=== PATIENT | female | born 1940 | race Asian ===

== ENCOUNTER → 2016-12-19 | Outpatient (CLI) | payer OTHER ==
[~2016-12-19] MED LIST: BACTRIM DS TAB1 EACH PO; BENADRYL25 MG PO; CALCIUM 600 +1 EAC1 PO; MIRALAX17 GM PO; OMEGA-31000 M1 PO; UNICOMPLEX M TA1 TA1 PO; VESICARE10 M1 PO; VITAMIN B-1100 M1 PO; VITAMIN D400 UNIT PO; ZONISAMIDE 100100 M1 PO
== END ==
LOC: RAD 01:07
DX: Z12.31 Encounter for screening mammogram for malignant neoplasm of breast (principal)

== ENCOUNTER → 2017-12-19 | Outpatient (CLI) | payer OTHER ==
[~2017-12-19] MED LIST changes: +AMITRIPTYLINE H10 M3 PO; +FOLIC ACID1 MG PO; +MAGNESIUM500 MG PO; +NEURONTIN 300300 M1 PO; +VISION FORMULA1 EAC1 PO; +VITAMIN B-12500 MCG PO
== END ==
LOC: RAD 01:19
DX: Z12.31 Encounter for screening mammogram for malignant neoplasm of breast (principal)

== ENCOUNTER 2018-08-22 20:45 | Emergency (ER) | payer OTHER ==
[~2018-08-22] VITALS: Ht 157.5 cm; Wt 68.0 kg
[2018-08-22] MEDS ORDERED: NORCO 5-325 TA1 EACH PO (22:32)
[2018-08-22] MEDS ORDERED: SENNA8.6 MG PO (22:32)
[2018-08-22] MEDS ORDERED: MIRALAX17 GM PO (22:32)
[2018-08-22] MEDS ORDERED: VALIUM5 MG PO (23:32)
[2018-08-22 23:37] VITALS: BP 138/64
== END 2018-08-22 23:42 | disposition home or self-care (01) ==
LOC: ER 20:45
DX: S42.212A Unspecified displaced fracture of surgical neck of left humerus, initial encounter for closed fracture (principal); Z88.0 Allergy status to penicillin; Z88.8 Allergy status to other drugs, medicaments and biological substances; Z88.1 Allergy status to other antibiotic agents; Z88.4 Allergy status to anesthetic agent; Z90.13 Acquired absence of bilateral breasts and nipples; Z90.89 Acquired absence of other organs; W01.0XXA Fall on same level from slipping, tripping and stumbling without subsequent striking against object, initial encounter; Y92.009 Unspecified place in unspecified non-institutional (private) residence as the place of occurrence of the external cause; Y93.89 Activity, other specified; Y99.8 Other external cause status

== ENCOUNTER 2018-09-01 05:29 | Inpatient (IN) | payer OTHER ==
[~2018-09-01] VITALS: Ht 154.9 cm; Wt 68.5 kg
[2018-09-01] VITALS (9 sets, daily range): BP systolic 104–143; BP diastolic 50–70
--- NOTE | ~2018-09-01 | D ---
[facility] [place] [address] DISCHARGE SUMMARY Name: MARISOL VIVEROS Room #: 421-P [facility] IN M.R.#: [id number] Admission: 09/01/18 ������������������ Attend Phys: Rudi Ruiz MD Discharge: ������������������ Date of : 44 Report #: [id number] THIS REPORT FOR: //name// CC: Rudi Fragoso DATE OF SERVICE: 09/02/2018 FINAL DIAGNOSIS: Left proximal humerus fracture. OPERATION AND PROCEDURES: Left proximal humeral hemiarthroplasty. HISTORY: This still very active, fully independent 78-year-old female fell at home injuring the left shoulder. She was found to have a comminuted fracture dislocation. We elected to proceed with hemiarthroplasty. HOSPITAL COURSE: The patient was admitted and taken to the operating room on 09/01/2018. She underwent left shoulder hemiarthroplasty, which she tolerated well. Postoperatively, she is doing quite nicely. She has only mild discomfort which is well controlled with oral medications. She is fully alert. She is back to a regular diet. She is comfortable in her arm sling. She feels safe and independent for discharge home today. DISCHARGE MEDICATIONS: Include calcium carbonate 1 tablet daily, multivitamins 1 tablet daily, thiamine 100 mg daily, vitamin D one tablet daily, vitamin B12 500 mcg one daily, gabapentin 300 mg daily, amitriptyline 10 mg b.i.d., hydrocodone 5 mg one q. 4-6 hours p.r.n. for pain, Crestor 5 mg daily. She will continue gentle moderate activity at home with arm sling protection and very gentle range of motion of the shoulder. I have asked her to call me if there are any problems or questions. I will plan to see her back in my office in 1 week for followup. ��������������������������������������������� ���������������������������������������� By: ��������������������������������������������� 0825 0913 Rudi Ruiz MD /nt
[~2018-09-01 05:29] MED LIST changes: +ALLOPURINOL 10100 M1 PO; +CRESTOR5 MG PO; +ESCITALOPRAM OX10 MG PO; +IRBESARTAN75 MG PO; +NORCO 5-325 TA1 EACH PO; +OMEPRAZOLE40 MG PO; +SENNA8.6 MG PO; +VALIUM5 MG PO; +VASCEPA0.5 GM PO
--- NOTE | 2018-09-01 07:28 | EKG ---
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 : 1940 Requested By: Rudi Ruiz Order Number: [id number] MD: Walter Monreal Measurements Intervals [place] Rate: 84 P: 48 IN: 160 QRS: 41 QRSD: 137 T: 15 QT: 414 QTc: 490 Interpretive Statements Sinus rhythm Atrial premature complex Right bundle branch block No previous ECG available for comparison Electronically Signed On 09-01-2018 7:27:54 CDT by Walter Monreal [email or web address] ��������������������������������������������� <ELECTRONICALLY SIGNED> ���������������������������������������� By: Walter Monreal MD, [facility] ��������������������������������������������� 09/01/18 0727 0616 0616 Walter Monreal MD, FACC /EPI
--- NOTE | 2018-09-01 18:24 | NUR ---
PT RECEIVED FROM OR THIS SHIFT; PT W/REPAIR OF FX TO L HUMERUS; PT IN STABLE CONDITION THIS SHIFT; NO C/O PAIN; ICE IN PLACE TO AFFECTED AREA; PT IS UP TO BATHROOM W/ASSIST X 1; SLING IN PLACE TO AFFECTED AREA; PT IS AXO X 4; DIET ADVANCED TO REG; NO ISSUES/CONCERNS NOTED; FOLLOWING POC
[2018-09-02 04:57] VITALS: BP 110/23
--- NOTE | 2018-09-02 05:08 | NUR ---
PATIENT ALERT AND ORIENTED X4. DRESSING ON L SHOULDER D/I. SLING ON L UPPER EXT. C/O PAIN X1. HAS HOME MEDS IN PHARMACY. SLEPT MOST OF NIGHT.
[2018-09-02 05:33] LABS: HEMATOCRIT 26.2 % (37.0-47.0)
[2018-09-02 05:39] LABS: POTASSIUM 4.5 mmol/L (3.5-5.1)
[2018-09-02 07:21] VITALS: BP 125/89
--- NOTE | 2018-09-02 08:25 | O ---
[facility] [address] OPERATIVE REPORT Name: MARISOL VIVEROS Room #: 421-P [facility] IN .R.#: [id number] Admission: 09/01/18 ������������������ Attend Phys: Rudi Ruiz MD Discharge: ������������������ Date of : 44 Report #: [id number] THIS REPORT FOR: //name// CC: Rudi Fragoso DATE OF SERVICE: 09/01/2018 PREOPERATIVE DIAGNOSIS: Fracture dislocation, left shoulder. POSTOPERATIVE DIAGNOSIS: Fracture dislocation, left shoulder. PROCEDURE: Left proximal humeral shoulder hemiarthroplasty. SURGEON: Rudi Ruiz MD INDICATIONS: This 78-year-old female is still active and fully independent working in her own home and garden. She tripped and fell at home injuring the left shoulder. X-rays confirmed a completely displaced and dislocated 4-part fracture of the proximal humerus. We have discussed treatment options and she has elected to go ahead with surgical reconstruction using a proximal humeral hemiarthroplasty. DESCRIPTION OF PROCEDURE: The patient was taken to the operating room. She was placed under general anesthesia and an interscalene block was applied. The left shoulder and arm were meticulously prepped and draped. Prophylactic intravenous antibiotics were administered. An anterior longitudinal incision was made and the deltopectoral interval was opened, the deltoid was reflected laterally. The fracture was found to be moderately comminuted in a 4-part fashion. The head was removed. The remaining tuberosity fragments were maintained and moderate comminution trimmed back to an appropriate level. The shaft was trimmed back to a more uniform superior margin. The canal was then hand reamed to a 10 mm reamer size. A trial reduction with a 10 mm stem insert was then tried. This was still rather proud and the canal was reamed slightly more aggressively, but still with a 10 mm reamer and the bone at the proximal aspect was trimmed down slightly. This allowed the component to settle in nicely and this seemed to be secure. A trial reduction was performed and a -5 mm body neck length was selected. A 40 mm eccentric humeral head and collar seemed to fit most appropriately. When these trial components were inserted, they were placed at about 10 to 15 degrees of retroversion, which seemed to nicely reproduce shoulder alignment and preserve range of motion with satisfactory stability. The remaining tuberosity fragments and remaining rotator cuff tendon portions were still reasonably intact and could be secured with sutures. The trial component was removed. Two #2 FiberWire sutures were passed through drill holes in the lateral aspect of the humeral shaft. The component was [facility] [address] [place] [address] OPERATIVE REPORT Name: MARISOL VIVEROS Room #: 421-P [facility] IN [facility]#: [id number] Admission: 09/01/18 ������������������ Attend Phys: Rudi Ruiz MD Discharge: ������������������ Date of : 44 Report #: [id number] assembled on the back table using the DePuy size 10 standard stem with a size 10 -5 mm body and a 40 mm eccentric head and collar. Once the components were appropriately assembled and secured, several additional FiberWire sutures were placed at the anterior and posterior aspect of the collar. The implant was then inserted positioning this in about 10 to 15 degrees of retroversion relative to the humeral shaft. It seated nicely and appeared to be very secure. I considered adding cement if the fixation seemed inadequate, but once the implant was fully impacted it appeared to be very tight and I questioned whether I would be able to remove it without undue damage. Therefore, I elected not to use any additional cement. The shoulder was reduced and seems to be in satisfactory position with satisfactory stability and alignment. The tuberosity fragments and rotator cuff were then repaired using the multiple #2 FiberWire sutures. This brought the tuberosities back nicely covering the component well and bringing a [id number] apposition repair, which seemed to be quite stable range of motion and alignment. At this point, it seemed to be satisfactory. The wound was copiously irrigated. The fascia and deltopectoral interval were closed with 0 Vicryl. The subcutaneous tissues were closed with 0 Vicryl and 2-0 Vicryl. The skin was closed with skin marianne. A sterile dressing was applied. The patient was awakened and returned to the recovery room in good condition. ��������������������������������������������� <ELECTRONICALLY SIGNED> ���������������������������������������� By: Rudi Ruiz MD ��������������������������������������������� 09/02/18 0825 0946 1022 Rudi Ruiz MD /nt
[2018-09-02 09:09] VITALS: BP 125/89
--- NOTE | 2018-09-02 12:43 | NUR ---
ASSUMED CARE AT 0700, SHIFT ASSESSMENT DONE, MEDS GIVEN, VSS. REPORTED PAIN, PRN PAIN MED GIVEN. DISCHARGE ORDER RECEIVED. PERIPHERAL IV WAS TAKEN OUT. DISCHARGE PAPER WORK GIVEN. DRESSING TO SURGICAL SITE WAS CHANGED AND 4*4 GAUZE WAS APPLIED, SUPPLIES GIVEN FOR DRESSING CHANGE. LEFT WITH FAMILY AT 1030.
== END 2018-09-02 10:22 | disposition home or self-care (01) | DRG 483 ==
LOC: OR 05:29 → TBA 05:29 → 4E 11:03 → OR 11:03 → ENTRNSPT 09-02 10:15 → 4E 09-02 10:22
PROVIDERS: ADMIT Orthopaedic Surgery
PROC: 0RRK0J6 Replacement of Left Shoulder Joint with Synthetic Substitute, Humeral Surface, Open Approach (ICD-10-PCS; principal; 2018-09-01)
DX: S42.202A Unspecified fracture of upper end of left humerus, initial encounter for closed fracture (principal); W01.0XXA Fall on same level from slipping, tripping and stumbling without subsequent striking against object, initial encounter; Y93.89 Activity, other specified; Y92.89 Other specified places as the place of occurrence of the external cause; Y99.8 Other external cause status
CPT/HCPCS: 10783; 50010; 50101; 50172; 50386; 50417; 50733; 51130; 51225; 51412; 53000; 54006; 55430; 56525; 56526; 56527; 56530; 62110; 62900; 64039; 70005

== ENCOUNTER → 2018-12-19 | Outpatient (CLI) | payer OTHER | LOC: RAD 00:24 | DX: Z12.31 Encounter for screening mammogram for malignant neoplasm of breast (principal) ==

== ENCOUNTER → 2019-12-21 | Outpatient (CLI) | payer OTHER | LOC: RAD 11:31 | PROVIDERS: ATTEND Internal Medicine | DX: Z12.31 Encounter for screening mammogram for malignant neoplasm of breast (principal) ==

== ENCOUNTER → 2020-12-21 | Outpatient (CLI) | payer OTHER | LOC: BC 13:22 | PROVIDERS: ATTEND Internal Medicine | DX: Z12.31 Encounter for screening mammogram for malignant neoplasm of breast (principal) ==